=== PATIENT | male | born 1980 | race Caucasian/White ===

== ENCOUNTER 2019-01-19 14:45 | Emergency (ER) | payer MEDICAID ==
[2019-01-19] MEDS ORDERED: Thiamine 100 mg/mL 2mL Vial IM STA (15:20)
[2019-01-19 15:23] LABS: % BASOPHILS 0.7 % (0.0-2.0); % EOSINOPHILS 0.7 % (0.0-5.0); % LYMPHOCYTES 25.6 % (20.0-50.0); % MONOCYTES 5.3 % (2.0-10.0); % NEUTROPHILS 67.7 % (40.0-80.0); BASOPHILE ABSOLUTE 0.1 Th/cumm (0-0.2); EOSINOPHILE ABSOLUTE 0.1 Th/cmm (0.1-0.4); HEMATOCRIT 38.8 % (41.0-60); HEMOGLOBIN 12.8 gm/dL (12-16); LYMPHOCYTE ABSOLUTE 2.2 Th/cmm (1.5-3.0); MEAN CELL VOLUME 84.9 fl (80-99); MEAN PLATELET VOLUME 7.1 fl; MONOCYTE ABSOLUTE 0.4 Th/cmm (0.3-1.0); NEUTROPHILE ABSOLUTE 5.6 Th/cmm (1.8-8.0); PLATELET COUNT 353 Th/cmm (150-400); RED BLOOD COUNT 4.57 Mil/cmm (4.30-5.70); RED CELL DISTRIBUTION WIDTH 14.2 % (11.5-20.0); WHITE BLOOD COUNT 8.4 Th/cmm (4.8-10.8)
[2019-01-19 15:39] LABS: ALB/GLOB RATIO 1.5 (1.0-1.8); ALBUMIN 4.3 gm/dL (4.2-5.5); ALKALINE PHOSPHATASE 61 U/L (34-104); ANION GAP 13.5 (7.0-16.0); BILIRUBIN,TOTAL 0.4 mg/dL (0.3-1.0); BUN - UREA NITROGEN 9 mg/dL (7-25); CALCIUM SERUM 8.5 mg/dL (8.6-10.3); CARBON DIOXIDE 27.7 mEq/L (21.0-31.0); CHLORIDE 106 mEq/L (98-107); CREATININE - SERUM 0.7 mg/dL (0.7-1.3); GFR AFRICAN-AMERICAN > 60.0 ml/min (>90); GFR NON AFRICAN-AMERICAN > 60.0 ml/min; GLUCOSE 110 mg/dL (70-105); MAGNESIUM 2.1 mg/dL (1.9-2.7); POTASSIUM SERUM 3.2 mEq/L (3.5-5.1); SGOT 77 U/L (13-39); SGPT/ALT 46 U/L (7-52); SODIUM SERUM 144 mEq/L (136-145); TOTAL PROTEIN,SERUM 7.1 gm/dL (6.0-8.3)
[2019-01-19] MEDS ORDERED: Thiamine 100 mg/mL 2mL Vial ONE (15:41)
--- NOTE | 2019-01-19 15:47 | ED Physician Chart ---
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 History of Present Illness:: unkown etoh use appears chronic Allergies:: Allergies Allergy/AdvReac Type Severity Reaction Status Date / Time UNOBTN - Unobtainable Allergy Verified 01/19/19 15:09 Vitals:: Vital Signs - 8 hr 01/19/19 15:15 Temp 98.1 F HR 110 RR 17 BP 121/77 O2 Sat % 95 Historian:: EMS Review:: Nurse's Note Reviewed, EMS run form Reviewed (pt looks at you acknolegement non verbal smell etoh) ED Review of Systems - Review of Systems General/Constitutional: No fever (unobtainable) ED Past Medical History - Past Medical History Obtainable: No (no vocolization) Family Medical History - Family Member Mother History Unknown: Yes ED Physical Exam - Physical Examination General/Constitutional: No distress (lethargic but) Head: Atraumatic Eyes: Lids, conjuctiva normal ENMT: External ears, nose nl Neck: Nontender Respiratory: Nl effort/Exclusion Cardio Vascular: RRR, No murmur, gallop, rubs, NL S1 S2 GI: No tenderness/rebounding/guarding Extremities: No tenderness or effusion ED Labs/Radiology/EKG Results - Lab Results Results: Laboratory Tests 01/19/19 15:15 WBC 8.4 RBC 4.57 Hgb 12.8 Hct 38.8 L MCV 84.9 MCH 28.0 MCHC Differential 33.0 RDW 14.2 Plt Count 353 MPV 7.1 Neutrophils % 67.7 Lymphocytes % 25.6 Monocytes % 5.3 Eosinophils % 0.7 Basophils % 0.7 ED Assessment - Assessment General Assessment: acute alcoholic intoxication ED Septic Shock - . Is Septic Shock (SBP<90, OR Lactate>4 mmol\L) present?: No - <6hrs of presentation: Vital Signs: Vital Signs - 8 hr 01/19/19 15:15 Temp 98.1 F HR 110 RR 17 BP 121/77 O2 Sat % 95
[2019-01-19] MEDS ORDERED: Potassium Chloride 20 mEq ER Tab PO ONE ×2 (17:38→18:04)
[2019-01-19] MEDS ORDERED: Sodium Chloride 0.9% 1,000 ML IV ONE (17:56)
[2019-01-19] MEDS ORDERED: Multivitamin Tab PO ONE (18:32)
[2019-01-19] MEDS ORDERED: Multivitamin Tab ONE (18:36)
== END 2019-01-19 22:16 | disposition home or self-care (01) ==
LOC: EDBD 14:45 → ER 14:45
DX: F10.129 Alcohol abuse with intoxication, unspecified (principal); Y90.8 Blood alcohol level of 240 mg/100 ml or more
CPT/HCPCS: 99284; 96372; 36415; 36416; 82948; 85025; 80320; 83735; 80053; J3411; J7030